=== PATIENT | female | born 1950 | race Caucasian/White ===

== ENCOUNTER 2017-05-29 16:12 | Inpatient (IN) | payer OTHER ==
[~2017-05-29] VITALS: Ht 162.6 cm; Wt 52.4 kg
[2017-05-29] MEDS ORDERED: SODIUM CHLORIDE 0.9% 1,000ML IVBOLUS ONE (16:30)
[2017-05-29] MEDS ORDERED: INSU100C5 SQ-INSULIN (16:36)
[2017-05-29] MEDS ORDERED: GLUC1VIA4 PO (16:36)
[2017-05-29] MEDS ORDERED: PROM25TA10 PO (16:36)
[2017-05-29] MEDS ORDERED: DAPA10TA PO (16:36)
[2017-05-29] MEDS ORDERED: HYDR12.58 PO (16:36)
[2017-05-29] MEDS ORDERED: LOVA20TA2 PO (16:36)
[2017-05-29] MEDS ORDERED: FURO20TA3 PO (16:36)
[2017-05-29] MEDS ORDERED: ENAL20TA PO (16:36)
[2017-05-29] MEDS ORDERED: IBUP-1222 PO (16:36)
[2017-05-29] MEDS ORDERED: HYDR-3241 PO (16:36)
[2017-05-29] MEDS ORDERED: TRAZ100T15 PO (16:36)
[2017-05-29] MEDS ORDERED: METF500T27 PO (16:36)
[2017-05-29] MEDS ORDERED: POTA20TA89 PO (16:36)
[2017-05-29] MEDS ORDERED: CITA20TA5 PO (16:36)
[2017-05-29] MEDS ORDERED: BACITRACIN ZINC OINT 500U/GM, 0.9 GM ONE (17:02)
[2017-05-29 17:09] LABS: HEMATOCRIT 40.4 % (34.6-47.8); HEMOGLOBIN 13.2 g/dL (11.7-16.4); WHITE BLOOD COUNT 4.6 x10^3/uL (3.4-10)
[2017-05-29 17:20] LABS: BLOOD UREA NITROGEN 10 mg/dL (7-18)
[2017-05-29 17:23] LABS: ASPARTATE AMINO TRANSFERASE 19 U/L (15-37)
[2017-05-29] MEDS ORDERED: MAGNESIUM SULFATE PMX 4GM/100M 100 ML IV ONE (17:30)
[2017-05-29 17:41] LABS: PATH.CAST-FLAG NOT PRESENT; SPERM-FLAG NOT PRESENT; SRC-FLAG NOT PRESENT; XTAL-FLAG NOT PRESENT; YLC-FLAG NOT PRESENT
[2017-05-29] MEDS ORDERED: SODIUM CHLORIDE 0.9% 1,000 ML IV SCH (18:07)
[2017-05-29] MEDS ORDERED: LORazepam 0.5MG TABLET PO PRN (18:30)
[2017-05-29] MEDS ORDERED: MAGNESIUM SULFATE PMX 2GM/50ML 50 ML IV ONE (18:30)
[2017-05-29] MEDS ORDERED: LORazepam 2 MG/ML, 1ML IV PRN ×5 (18:30)
[2017-05-29] MEDS ORDERED: LORazepam 1MG TABLET PO PRN ×2 (18:30)
[2017-05-29] MEDS ORDERED: POLYETHYLENE GLYCOL 17 GM PACKET PO PRN (18:30)
[2017-05-29] MEDS ORDERED: HYDROcodone/APAP 5/325 TABLET ONE (20:25)
[2017-05-29] MEDS: HYDROcodone/APAP 5/325 TABLET PO PRN ×2 (20:28→22:12)
[2017-05-29] MEDS: TRAZODONE 100MG TABLET PO SCH (23:33)
[2017-05-29] MEDS: LOVASTATIN 40 MG TABLET PO SCH (23:34)
[2017-05-29] MEDS: CEFTRIAXONE PMX 1GM/50ML 50 ML IV SCH (23:34)
[2017-05-29] MEDS: ENOXAPARIN 30 MG/0.3 ML SQ SCH (23:34)
[2017-05-30 00:12] VITALS: BP 93/61
[2017-05-30 00:32] VITALS: BP 184/83
[2017-05-30] MEDS: LABETALOL 5MG/ML, 20ML IVPush PRN (00:42)
[2017-05-30] MEDS: POTASSIUM CHLORIDE 20 MEQ, MAGNESIUM SULFATE 1 GM, FOLIC ACID 1 MG, THIAMINE 100 MG, MV... IV SCH (01:03)
[2017-05-30 05:53] LABS: ASPARTATE AMINO TRANSFERASE 19 U/L (15-37); BLOOD UREA NITROGEN 11 mg/dL (7-18)
[2017-05-30 05:55] LABS: HEMATOCRIT 33.2 % (34.6-47.8); HEMOGLOBIN 11.1 g/dL (11.7-16.4); WHITE BLOOD COUNT 5.9 x10^3/uL (3.4-10)
[2017-05-30] MEDS: ENOXAPARIN 30 MG/0.3 ML SQ SCH ×3 (05:59→23:43)
[2017-05-30] MEDS: HYDROcodone/APAP 5/325 TABLET PO PRN ×3 (05:59→20:20)
[2017-05-30 06:38] VITALS: BP 158/82
[2017-05-30 08:00] VITALS: BP 162/79
[2017-05-30] MEDS: SENNA/DOCUSATE TABLET PO SCH (09:00)
[2017-05-30] MEDS: INSULIN ASPART 100 UNITS/ML, PEN SQ-INSULIN SCH ×4 (09:10→20:15)
[2017-05-30] MEDS: CITALOPRAM 20 MG TABLET PO SCH (09:10)
[2017-05-30] MEDS: ENALAPRIL 20MG TABLET PO SCH (09:10)
[2017-05-30 13:44] VITALS: BP 135/71
[2017-05-30] MEDS: SODIUM CHLORIDE 0.9% 1,000 ML IV SCH (18:07)
[2017-05-30] MEDS: CEFTRIAXONE PMX 1GM/50ML 50 ML IV SCH (18:18)
[2017-05-30 20:15] VITALS: BP 174/82
[2017-05-30] MEDS: TRAZODONE 100MG TABLET PO SCH (20:15)
[2017-05-30] MEDS: LOVASTATIN 40 MG TABLET PO SCH (20:15)
[2017-05-31 00:31] VITALS: BP 156/74
[2017-05-31] MEDS: HYDROcodone/APAP 5/325 TABLET PO PRN ×3 (01:12→21:00)
[2017-05-31] MEDS: POTASSIUM CHLORIDE 20 MEQ, MAGNESIUM SULFATE 1 GM, FOLIC ACID 1 MG, THIAMINE 100 MG, MV... IV SCH (02:23)
[2017-05-31 05:53] LABS: HEMATOCRIT 32.8 % (34.6-47.8); HEMOGLOBIN 10.9 g/dL (11.7-16.4); WHITE BLOOD COUNT 4.1 x10^3/uL (3.4-10)
[2017-05-31 05:55] LABS: ASPARTATE AMINO TRANSFERASE 15 U/L (15-37); BLOOD UREA NITROGEN 8 mg/dL (7-18)
[2017-05-31 07:33] VITALS: BP 193/89
[2017-05-31] MEDS: CITALOPRAM 20 MG TABLET PO SCH (09:00)
[2017-05-31] MEDS: INSULIN ASPART 100 UNITS/ML, PEN SQ-INSULIN SCH ×4 (09:00→21:01)
[2017-05-31] MEDS: ENALAPRIL 20MG TABLET PO SCH (09:00)
[2017-05-31] MEDS: SENNA/DOCUSATE TABLET PO SCH (09:01)
[2017-05-31] MEDS: ENOXAPARIN 30 MG/0.3 ML SQ SCH ×2 (13:40→23:30)
[2017-05-31 17:34] VITALS: BP 175/88
[2017-05-31] MEDS: SODIUM CHLORIDE 0.9% 1,000 ML IV SCH (18:37)
[2017-05-31] MEDS: CEFTRIAXONE PMX 1GM/50ML 50 ML IV SCH (18:37)
[2017-05-31] MEDS: LABETALOL 5MG/ML, 20ML IVPush PRN (18:43)
[2017-05-31 18:47] VITALS: BP 189/88
[2017-05-31] MEDS: TRAZODONE 100MG TABLET PO SCH (21:01)
[2017-05-31] MEDS: LOVASTATIN 40 MG TABLET PO SCH (21:01)
[2017-05-31] MEDS ORDERED: DEXTROSE 50%, 50ML VIAL ONE (22:58)
[2017-05-31] MEDS ORDERED: GLUCAGON 1 MG IM PRN (23:00)
[2017-05-31] MEDS ORDERED: DEXTROSE 4 GM TAB.CHEW PO PRN (23:00)
[2017-05-31] MEDS ORDERED: DEXTROSE 50%, 50ML SYRINGE IVPush PRN (23:00)
[2017-05-31] MEDS: SODIUM CHLORIDE FLUSH 10ML SYR IVF SCH (23:00)
[2017-06-01 01:46] VITALS: BP 150/81
[2017-06-01] MEDS: POTASSIUM CHLORIDE 20 MEQ, MAGNESIUM SULFATE 1 GM, FOLIC ACID 1 MG, THIAMINE 100 MG, MV... IV SCH (02:46)
[2017-06-01 05:47] LABS: HEMATOCRIT 34.9 % (34.6-47.8); HEMOGLOBIN 11.6 g/dL (11.7-16.4); WHITE BLOOD COUNT 3.3 x10^3/uL (3.4-10)
[2017-06-01 06:08] LABS: ASPARTATE AMINO TRANSFERASE 16 U/L (15-37); BLOOD UREA NITROGEN 8 mg/dL (7-18)
[2017-06-01] MEDS: HYDROcodone/APAP 5/325 TABLET PO PRN ×5 (07:11→23:37)
[2017-06-01] MEDS: CITALOPRAM 20 MG TABLET PO SCH (07:49)
[2017-06-01] MEDS: ENALAPRIL 20MG TABLET PO SCH (07:49)
[2017-06-01] MEDS: SENNA/DOCUSATE TABLET PO SCH (07:50)
[2017-06-01] MEDS: SODIUM CHLORIDE FLUSH 10ML SYR IVF SCH ×2 (07:50→23:18)
[2017-06-01 07:56] VITALS: BP 188/83
[2017-06-01] MEDS: INSULIN ASPART 100 UNITS/ML, PEN SQ-INSULIN SCH ×4 (08:22→23:29)
[2017-06-01] MEDS ORDERED: FOLIC ACID 1 MG TABLET PO ONE (09:00)
[2017-06-01] MEDS ORDERED: INSULIN DETEMIR 100 UNITS/ML, PEN SQ-INSULIN ONE (09:00)
[2017-06-01] MEDS: INSULIN DETEMIR 100 UNITS/ML, PEN SQ-INSULIN SCH (09:00)
[2017-06-01] MEDS: AMLODIPINE 5 MG TABLET PO SCH (10:14)
[2017-06-01] MEDS: HYDROCHLOROTHIAZIDE 12.5 MG CAPSULE PO SCH (10:14)
[2017-06-01] MEDS: THIAMINE 100MG TABLET PO SCH (10:14)
[2017-06-01] MEDS: (Dapagliflozin Propanediol (Farxiga) 10 MG) PO SCH (11:00)
[2017-06-01] MEDS: METFORMIN HCL 1000 MG PO SCH ×2 (12:13→23:01)
[2017-06-01] MEDS: ENOXAPARIN 30 MG/0.3 ML SQ SCH ×2 (12:31→23:18)
[2017-06-01] MEDS: SODIUM CHLORIDE 0.9% 1,000 ML IV SCH (12:35)
[2017-06-01 14:05] VITALS: BP 143/72
[2017-06-01] MEDS: CEFTRIAXONE PMX 1GM/50ML 50 ML IV SCH (18:24)
[2017-06-01 19:20] VITALS: BP 164/79
[2017-06-01] MEDS ORDERED: INSULIN DETEMIR 100 UNITS/ML, PEN SQ-INSULIN SCH (21:00)
[2017-06-01] MEDS: TRAZODONE 100MG TABLET PO SCH (23:18)
[2017-06-01] MEDS: LOVASTATIN 40 MG TABLET PO SCH (23:37)
[2017-06-02 02:00] VITALS: BP 111/65
[2017-06-02] MEDS: SODIUM CHLORIDE 0.9% 1,000 ML IV SCH (03:58)
[2017-06-02] MEDS: HYDROcodone/APAP 5/325 TABLET PO PRN ×3 (03:58→11:42)
[2017-06-02] MEDS: (Dapagliflozin Propanediol (Farxiga) 10 MG) PO SCH (07:47)
[2017-06-02] MEDS: METFORMIN HCL 1000 MG PO SCH (07:47)
[2017-06-02] MEDS: SENNA/DOCUSATE TABLET PO SCH (07:48)
[2017-06-02] MEDS: INSULIN DETEMIR 100 UNITS/ML, PEN SQ-INSULIN SCH (07:48)
[2017-06-02 07:52] VITALS: BP 171/87
[2017-06-02] MEDS: ENALAPRIL 20MG TABLET PO SCH (07:59)
[2017-06-02] MEDS: CITALOPRAM 20 MG TABLET PO SCH (07:59)
[2017-06-02] MEDS: THIAMINE 100MG TABLET PO SCH (07:59)
[2017-06-02] MEDS: HYDROCHLOROTHIAZIDE 12.5 MG CAPSULE PO SCH (07:59)
[2017-06-02] MEDS: SODIUM CHLORIDE FLUSH 10ML SYR IVF SCH (07:59)
[2017-06-02] MEDS: AMLODIPINE 5 MG TABLET PO SCH (07:59)
[2017-06-02] MEDS: INSULIN ASPART 100 UNITS/ML, PEN SQ-INSULIN SCH ×2 (08:00→11:00)
[2017-06-02] MEDS ORDERED: CEFD300C37 PO (09:33)
[2017-06-02] MEDS: ENOXAPARIN 30 MG/0.3 ML SQ SCH (11:30)
== END 2017-06-02 12:26 | disposition home or self-care (01) | DRG 562 ==
LOC: ED 16:31 → EDIP 17:25 → 4WST 22:35 → DCLOUNGE 06-02 12:03
PROVIDERS: ADMIT Hospitalist; ATTEND Hospitalist
DX: S82.832A Other fracture of upper and lower end of left fibula, initial encounter for closed fracture (principal); E43 Unspecified severe protein-calorie malnutrition; D69.6 Thrombocytopenia, unspecified; E87.2 Acidosis; I11.0 Hypertensive heart disease with heart failure; E11.649 Type 2 diabetes mellitus with hypoglycemia without coma; I50.30 Unspecified diastolic (congestive) heart failure; Z68.1 Body mass index [BMI] 19.9 or less, adult; N39.0 Urinary tract infection, site not specified; W18.39XA Other fall on same level, initial encounter; E83.42 Hypomagnesemia; B96.20 Unspecified Escherichia coli [E. coli] as the cause of diseases classified elsewhere; D64.9 Anemia, unspecified; E78.00 Pure hypercholesterolemia, unspecified; F10.229 Alcohol dependence with intoxication, unspecified; F32.9 Major depressive disorder, single episode, unspecified; G89.29 Other chronic pain; Y90.8 Blood alcohol level of 240 mg/100 ml or more; Z79.84 Long term (current) use of oral hypoglycemic drugs; Z80.3 Family history of malignant neoplasm of breast; Z80.8 Family history of malignant neoplasm of other organs or systems; Z87.891 Personal history of nicotine dependence; Y93.89 Activity, other specified; Y92.89 Other specified places as the place of occurrence of the external cause; Y99.8 Other external cause status
CPT/HCPCS: 36415; 80053; 80061; 80307; 81001; 82947; 82962; 83036; 83690; 83735; 84439; 85025; 85610; 87077; 87086; 87186; 93005; 93306; 96361; 96374; J0696; J1650; J1815; J3411; J3475; J3480; J7042; G0479; J7030

== ENCOUNTER → 2018-09-10 | Outpatient (CLI) | payer MEDICARE ==
[~2018-09-10] MED LIST: CEFD300C37 PO; CITA20TA6 PO; DAPA10TA PO; ENAL20TA PO; FURO20TA3 PO; GLUC1VIA4 PO; HYDR-3241 PO; HYDROCHLOROTH12.5 MG PO; IBUP-1222 PO; INSU100C5 SQ-INSULIN; LOVA20TA2 PO; METF500T27 PO; POTA20TA89 PO; PROM25TA10 PO; TRAZ-137 PO
== END | disposition home or self-care (01) ==
LOC: RAD 14:29
PROVIDERS: ATTEND Nurse Practitioner Family
DX: R60.9 Edema, unspecified (principal); M79.89 Other specified soft tissue disorders